=== PATIENT | female | born 1950 | race Caucasian/White ===

== ENCOUNTER 2017-12-09 10:38 | Emergency (ER) | payer MEDICARE, MEDICAID ==
[2017-12-09 10:48] VITALS: TEMP 98; O2SAT 99
[2017-12-09 10:49] VITALS: BMI 39.1
[2017-12-09] MEDS ORDERED: Oxycodone/Acetaminophen 5/325 mg Tab PO STA (11:21)
--- NOTE | 2017-12-09 11:24 | ED PDOC ---
Lower Extremity Pain/Injury Time Seen by Provider: 12/09/17 11:22 Chief Complaint (Nursing): Lower Extremity Problem/Injury Chief Complaint (Provider): right knee pain History Per: Patient (67 y/o female here with h/o knee pain worse x 8 days progressively more painful. Has been seen by Dr. Hart and written rx for motrin/tramadol. Feels pain is uncontrolled with medication. Has MRI scheduled today at 1pm. Requests stronger medication for pain. Notes pain in knee occurs with bearing weight. Has had xry evaluation of knee by dr. hart with negative findings. Denies any h/o trauma.) Past Medical History Reviewed: Historical Data, Nursing Documentation, Vital Signs Vital Signs: Last Vital Signs Temp 98 F 12/09/17 10:47 Pulse 78 12/09/17 10:47 Resp BP 169/89 H 12/09/17 10:47 Pulse Ox 99 12/09/17 10:47 - Family History Family History: States: No Known Family Hx - Immunization History Hx Tetanus Toxoid Vaccination: No Hx Influenza Vaccination: No Hx Pneumococcal Vaccination: No - Home Medications Home Medications: Ambulatory Orders Medication Instructions Recorded Omeprazole Magnesium [Prilosec Otc] 20 mg PO DAILY #15 tablet. 12/09/17 - Allergies Allergies/Adverse Reactions: Allergies Allergy/AdvReac Type Severity Reaction Status Date / Time No Known Allergies Allergy Verified 12/09/17 10:55 Review of Systems ROS Statement: Except As Marked, All Systems Reviewed And Found Negative Physical Exam - Reviewed Nursing Documentation Reviewed: Yes Vital Signs Reviewed: Yes - Physical Exam Appears: Positive for: Well, Non-toxic, No Acute Distress Head Exam: Positive for: ATRAUMATIC, NORMAL INSPECTION, NORMOCEPHALIC Skin: Positive for: Normal Color, Warm, DRY Eye Exam: Positive for: EOMI, Normal appearance, PERRL ENT: Positive for: Normal ENT Inspection Neck: Positive for: Normal, Painless ROM Cardiovascular/Chest: Positive for: Regular Rate, Rhythm Respiratory: Positive for: CNT, Normal Breath Sounds Gastrointestinal/Abdominal: Positive for: Normal Exam, Soft Back: Positive for: Normal Inspection Extremity: Positive for: Normal ROM, Other (minimal knee effusion noted. No erythema. Patient able to flex and extend knee). Negative for: Calf Tenderness Neurologic/Psych: Positive for: Alert, Oriented - ECG O2 Sat by Pulse Oximetry: 99 - Progress ED Course And Treament: percocet 5/325 mg x 1 dose d/w patient that MRI evaluation of knee would be helpful in diagnosis and management of her knee pain. She will f/u with PMD after. We will give her ortho referral as well. Disposition - Clinical Impression Clinical Impression: Knee pain - Patient ED Disposition Is Patient to be Admitted: No - Disposition Referrals: Shirley Hawkins MD [Staff Provider] - Disposition: Routine/Home Disposition Time: 11:25 Condition: FAIR Prescriptions: Omeprazole Magnesium [Prilosec Otc] 20 mg PO DAILY #15 tablet. Instructions: Knee Pain (DC) Print Language: MAORI
[2017-12-09] MEDS ORDERED: Oxycodone/Acetaminophen 5/325 mg Tab ONE (11:29)
[2017-12-09 11:43] VITALS: BP 159/82; PULSE 76
== END 2017-12-09 11:35 | disposition home or self-care (01) ==
LOC: H.ER 10:38
DX: M25.561 Pain in right knee (principal)